=== PATIENT | female | born 1995 | race Caucasian/White ===

== ENCOUNTER 2018-12-24 06:51 | Emergency (ER) | payer BC ==
[2018-12-24] MEDS ORDERED: IPRATROPIUM-ALBUTEROL 3 ML NEB INHALATION STA (07:38)
[2018-12-24] MEDS ORDERED: ACETAMINOPHEN TAB 325 MG TAB PO STA (07:41)
--- NOTE | 2018-12-24 07:42 | ED ---
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 She states is getting worse not better. She states she has a nonproductive cough but has a bad taste in her mouth after coughing. She denies any earaches or sore throat other than from coughing she has had intermittent on and off rhinorrhea. She states that is clear. She thought she does have a cold but again is not getting better. No other modifying factors or complaints. MD Complaint: fever, cough, rhinorrhea, nasal congestion, other - Related Data Previous Rx's Medication Instructions Recorded Ibuprofen [Motrin] 600 mg PO Q6HR PRN #20 tab 12/24/18 Oseltamivir [Tamiflu] 75 mg PO Q12HR #10 cap 12/24/18 Allergies Allergy/AdvReac Type Severity Reaction Status Date / Time No Known Allergies Allergy Verified 12/24/18 07:37 Review of Systems ROS Statement: Those systems with pertinent positive or pertinent negative responses have been documented in the HPI. ROS Other: All systems not noted in ROS Statement are negative. Past Medical History Past Medical History: Pneumonia History of Any Multi-Drug Resistant Organisms: None Reported Past Surgical History: No Surgical Hx Reported Past Psychological History: No Psychological Hx Reported Smoking Status: Never smoker Past Alcohol Use History: Occasional Past Drug Use History: None Reported General Exam - General Exam Comments Initial Comments: This a well-developed well-nourished awake alert oriented 3 female Limitations: no limitations General appearance: alert, anxious Head exam: Present: atraumatic, normocephalic, normal inspection Eye exam: Present: normal appearance, PERRL, EOMI. Absent: scleral icterus, conjunctival injection, periorbital swelling ENT exam: Present: other (Boggy nasal mucosa with clear drainage noted mild hyperemia posterior pharynx with no exudates. Dull TMs with no evidence of any exudates/fluid no erythema.) Neck exam: Present: normal inspection, full ROM, other (No stridor JVD or bruits ). Absent: tenderness, meningismus, lymphadenopathy Respiratory exam: Present: decreased breath sounds Cardiovascular Exam: Present: normal rhythm, tachycardia, normal heart sounds. Absent: systolic murmur, diastolic murmur, rubs, gallop, clicks GI/Abdominal exam: Present: soft, normal bowel sounds. Absent: distended, tenderness, guarding, rebound, rigid Extremities exam: Present: normal inspection, full ROM, normal capillary refill. Absent: tenderness, pedal edema, joint swelling, calf tenderness Back exam: Present: normal inspection Neurological exam: Present: alert, oriented X3, CN II-XII intact Psychiatric exam: Present: normal affect, normal mood Skin exam: Present: warm, dry, intact, normal color. Absent: rash Course Vital Signs 12/24/18 12/24/18 12/24/18 07:07 07:22 07:49 Temperature 99.2 F Pulse Rate 120 H 88 Respiratory 18 16 Rate Blood Pressure 111/78 O2 Sat by Pulse 98 Oximetry 12/24/18 07:57 Temperature Pulse Rate 92 Respiratory Rate Blood Pressure O2 Sat by Pulse Oximetry Medical Decision Making - Medical Decision Making Patient did state that she got no relief or change in her ability to breathe with the nebulizer treatment. Reevaluation reveals some increased aeration. She does have influenza type A we did discuss the findings. She would like to try the Tamiflu. She will be given the rest the week off from work if she worsens a child [facility]. The presentation is consistent with influenza - Lab Data Lab Results 12/24/18 Range/Units 07:37 Influenza Type A RNA Detected H (Not Detectd) Influenza Type B (PCR) Not Detected (Not Detectd) - Radiology Data Radiology results: report reviewed (I did review the imaging and report no acute findings.), image reviewed Disposition Clinical Impression: Influenza A, Bronchitis, Viral syndrome Disposition: HOME SELF-CARE Condition: Good Instructions (If sedation given, give patient instructions): Influenza (ED), Upper Respiratory Infection (ED), Acute Bronchitis (ED), Viral Syndrome (ED) Prescriptions: Ibuprofen [Motrin] 600 mg PO Q6HR PRN #20 tab PRN Reason: Fever Oseltamivir [Tamiflu] 75 mg PO Q12HR #10 cap Is patient prescribed a controlled substance at d/c from ED?: No Referrals: None,Stated [Primary Care Provider] - 1-2 days
--- NOTE | 2018-12-24 08:16 | XR ---
EXAMINATION TYPE: XR chest 2V DATE OF EXAM: 12/24/2018 COMPARISON: None INDICATION: Cough congestion TECHNIQUE: Frontal and lateral views of the chest are obtained. FINDINGS: The heart size is normal. The pulmonary vasculature is normal. The lungs are clear. IMPRESSION: 1. No acute pulmonary process.
[2018-12-24] MEDS ORDERED: OSELTAMIVIR 75 MG CAP PO STA (08:28)
[2018-12-24 08:47] VITALS: BP 141/88; PULSE 120; RESP 22; TEMP 100.3
== END 2018-12-24 08:44 | disposition home or self-care (01) ==
LOC: EC 06:51
DX: J10.1 Influenza due to other identified influenza virus with other respiratory manifestations (principal); B34.9 Viral infection, unspecified; J40 Bronchitis, not specified as acute or chronic
CPT/HCPCS: 71046; 87502; 94640; 99284

== ENCOUNTER → 2019-01-09 | Outpatient (CLI) | payer BC | END | disposition home or self-care (01) | LOC: LABWHC1 15:41 | PROVIDERS: ATTEND Obstetrics & Gynecology | DX: N91.2 Amenorrhea, unspecified (principal) | CPT/HCPCS: 36415; 84702 ==

== ENCOUNTER 2021-07-15 16:59 | Emergency (ER) | payer BC, OTHER ==
[2021-07-15 17:04] VITALS: BP 139/88; PULSE 103; RESP 18; TEMP 98.8
[2021-07-15] MEDS ORDERED: KETOROLAC 15 MG/ML 1 ML VIAL IM STA (17:15)
--- NOTE | 2021-07-15 17:23 | ED ---
ENT HPI - General Chief complaint: ENT Stated complaint: ear pain Time Seen by Provider: 07/15/21 17:06 Source: patient, RN notes reviewed, old records reviewed Mode of arrival: ambulatory Limitations: no limitations - History of Present Illness Initial comments: 25-year-old female, alert and oriented 4, presents to the emergency room with left ear pain for 6 days. She was placed on amoxicillin on Saturday for an ear infection but she states that it is still painful and now feels it on the left side of her face. She denies any fevers, headaches, dizziness or nausea vomiting. She denies any drainage. She states that she is maxed out on Tylenol and ibuprofen but doesn't know what else to do for pain. MD complaint: ear pain -: days(s) (6) Location: L ear Severity scale (1-10): 8 Quality: aching, sharp Consistency: constant Improves with: none - Related Data Previous Rx's Medication Instructions Recorded Ibuprofen [Motrin] 600 mg PO Q6HR PRN #20 tab 12/24/18 Oseltamivir [Tamiflu] 75 mg PO Q12HR #10 cap 12/24/18 Azithromycin [Zithromax Z-pack (6 0 mg PO DIRECTED #6 tab 07/15/21 tabs)] predniSONE 50 mg PO DAILY #5 tab 07/15/21 Allergies Allergy/AdvReac Type Severity Reaction Status Date / Time No Known Allergies Allergy Verified 07/15/21 17:04 Review of Systems ROS Statement: Those systems with pertinent positive or pertinent negative responses have been documented in the HPI. ROS Other: All systems not noted in ROS Statement are negative. Past Medical History Past Medical History: Pneumonia History of Any Multi-Drug Resistant Organisms: None Reported Past Surgical History: No Surgical Hx Reported Past Psychological History: No Psychological Hx Reported Smoking Status: Never smoker Past Alcohol Use History: Occasional Past Drug Use History: None Reported General Exam Limitations: no limitations General appearance: alert, in no apparent distress Head exam: Present: atraumatic, normocephalic, normal inspection Eye exam: Present: normal appearance, PERRL, EOMI. Absent: scleral icterus, conjunctival injection, periorbital swelling ENT exam: Present: normal exam, normal oropharynx, mucous membranes moist, normal external ear exam, other (Left otitis media with effusion and air fluid levels). Absent: TM's normal bilaterally Neck exam: Present: normal inspection, full ROM. Absent: tenderness, meningismus, lymphadenopathy Respiratory exam: Present: normal lung sounds bilaterally. Absent: respiratory distress, wheezes, rales, rhonchi, stridor Cardiovascular Exam: Present: tachycardia Back exam: Present: full ROM. Absent: tenderness, CVA tenderness (R), CVA tenderness (L) Neurological exam: Present: alert, oriented X3, CN II-XII intact Psychiatric exam: Present: normal affect, normal mood Skin exam: Present: warm, dry, intact, normal color. Absent: rash, cyanosis, diaphoretic, erythema, petechiae, pallor, mottled Course Vital Signs 07/15/21 17:00 Temperature 98.8 F Pulse Rate 103 H Respiratory 18 Rate Blood Pressure 139/88 O2 Sat by Pulse 96 Oximetry Medical Decision Making - Medical Decision Making Patient's left tympanic membrane shows an effusion with erythema resembling bullous myringitis. She has no focal neurologic deficits. No hearing loss. She denies any headache or visual changes. She states she has not had any fevers . She is directed to stop taking the amoxicillin and take Zithromax as prescribed and prednisone for inflammation. She was given a referral to ENT. Case was discussed with Dr. Perkins. Disposition Clinical Impression: Otitis media Disposition: HOME SELF-CARE Condition: Good Instructions (If sedation given, give patient instructions): Ear Infection (ED) Additional Instructions: Stop taking the amoxicillin and take the Zithromax as prescribed. Take prednisone as prescribed and do not take Motrin or ibuprofen when taking steroids for the next 5 days. Continue Tylenol for pain. Follow-up with ear or nose and throat doctor next week. Return to the emergency room with any new or worsening symptoms including increased pain with fevers or headaches. Prescriptions: predniSONE 50 mg PO DAILY #5 tab Azithromycin [Zithromax Z-pack (6 tabs)] 0 mg PO DIRECTED #6 tab Is patient prescribed a controlled substance at d/c from ED?: No Referrals: Santo Nesbitt MD [Primary Care Provider] - 1-2 days Mike Singh MD [STAFF PHYSICIAN] - 1-2 days Time of Disposition: 17:34
[2021-07-15] MEDS ORDERED: ACET/COD 300 MG/30 MG STARTER PACK 6 TAB BTL PO STA (17:34)
== END 2021-07-15 17:43 | disposition home or self-care (01) ==
LOC: EC 16:59
DX: H66.92 Otitis media, unspecified, left ear (principal); Z79.1 Long term (current) use of non-steroidal anti-inflammatories (NSAID); Z79.899 Other long term (current) drug therapy
CPT/HCPCS: 99282; 96372; J1885

== ENCOUNTER 2021-07-16 03:43 | Emergency (ER) | payer OTHER ==
[2021-07-16 03:48] VITALS: TEMP 98.3
[2021-07-16] MEDS ORDERED: KETOROLAC 15 MG/ML 1 ML VIAL IM STA (04:01)
[2021-07-16] MEDS ORDERED: MORPHINE SULFATE 4 MG/ML SYRINGE IM STA (04:01)
--- NOTE | 2021-07-16 04:04 | ED ---
General Adult HPI - General Chief complaint: ENT Stated complaint: ENT Time Seen by Provider: 07/16/21 03:46 Source: patient Mode of arrival: ambulatory Limitations: no limitations - History of Present Illness Initial comments: 25 year-old female patient presents to the emergency department for evaluation of left ear pain. Patient was seen and evaluated yesterday afternoon for left ear pain. She was diagnosed with bullous myringitis and discharged with azithromycin and prednisone. She was given tylenol with codeine starter pack. She was previously given amoxicillin for otitis media on Saturday. States she has been taking the medications without relief. Denies any fever or chills. Denies nausea or vomiting. States she is unable to sleep due to the pain. Denies any headache. Denies neck or back pain. - Related Data Previous Rx's Medication Instructions Recorded Ibuprofen [Motrin] 600 mg PO Q6HR PRN #20 tab 12/24/18 Oseltamivir [Tamiflu] 75 mg PO Q12HR #10 cap 12/24/18 Azithromycin [Zithromax Z-pack (6 0 mg PO DIRECTED #6 tab 07/15/21 tabs)] predniSONE 50 mg PO DAILY #5 tab 07/15/21 HYDROcodone/APAP 5-325MG [[place] 5] 1 each PO Q6HR PRN #8 tab 07/16/21 Allergies Allergy/AdvReac Type Severity Reaction Status Date / Time No Known Allergies Allergy Verified 07/16/21 03:48 Review of Systems ROS Statement: Those systems with pertinent positive or pertinent negative responses have been documented in the HPI. ROS Other: All systems not noted in ROS Statement are negative. Past Medical History Past Medical History: Pneumonia History of Any Multi-Drug Resistant Organisms: None Reported Past Surgical History: No Surgical Hx Reported Past Psychological History: No Psychological Hx Reported Smoking Status: Never smoker Past Alcohol Use History: Occasional Past Drug Use History: None Reported General Exam Limitations: no limitations General appearance: alert, in no apparent distress, other (This is a well-developed, well-nourished adult female patient in mild distress related to pain. Vital signs upon presentation temperature 98.3F, pulse 97, respirations 20, blood pressure 157/95, pulse ox 95% on room air.) ENT exam: Present: normal exam, normal oropharynx, mucous membranes moist. Absent: TM's normal bilaterally (Left tympanic membrane is bulging and erythematous, some drainage in the ear.) Neck exam: Present: normal inspection. Absent: tenderness, meningismus, lymphadenopathy Respiratory exam: Present: normal lung sounds bilaterally. Absent: respiratory distress, wheezes, rales, rhonchi, stridor Cardiovascular Exam: Present: regular rate, normal rhythm, normal heart sounds. Absent: systolic murmur, diastolic murmur, rubs, gallop, clicks Neurological exam: Present: alert, oriented X3, CN II-XII intact Psychiatric exam: Present: normal affect, normal mood Skin exam: Present: warm, dry, intact, normal color. Absent: rash Course Vital Signs 07/16/21 07/16/21 03:44 04:37 Temperature 98.3 F 98.3 F Pulse Rate 97 98 Respiratory 20 18 Rate Blood Pressure 157/95 147/95 O2 Sat by Pulse 95 95 Oximetry Medical Decision Making - Medical Decision Making 25-year-old female patient presented to the emergency department today for evaluation of left ear pain. Physical examination did reveal left tympanic membrane bulging and erythema with drainage in the ear canal. Symptoms and findings are consistent with bullous pharyngitis. Patient did start azithromycin and prednisone yesterday. She will be given IM doses of Toradol and morphine while here. Given a 2 day course of Seneca. She is instructed to follow up with ENT in her primary care physician as soon as possible. Return parameters were discussed in detail. She verbalizes understanding and agrees with this plan. My attending is Dr. Katz. Disposition Clinical Impression: Left otitis media Disposition: HOME SELF-CARE Condition: Good Instructions (If sedation given, give patient instructions): Ear Infection (ED) Additional Instructions: Continue antibiotics and steroids as directed. Take all medications with food. Follow-up with her primary care physician and ENT specialist as planned. Return for any new, worsening, or concerning symptoms. Prescriptions: HYDROcodone/APAP 5-325MG [[place] 5] 1 each PO Q6HR PRN #8 tab PRN Reason: Pain Is patient prescribed a controlled substance at d/c from ED?: No Referrals: Santo Nesbitt MD [Primary Care Provider] - 1-2 days Time of Disposition: 04:03
[2021-07-16 04:49] VITALS: BP 147/95; PULSE 98; RESP 18
== END 2021-07-16 04:37 | disposition home or self-care (01) ==
LOC: EC 03:43
DX: H66.92 Otitis media, unspecified, left ear (principal)
CPT/HCPCS: 99282; 96372 ×2; J2270; J1885

== ENCOUNTER 2022-05-19 08:34 | Emergency (ER) | payer BC, OTHER ==
[2022-05-19 08:45] VITALS: BP 136/96; PULSE 101; RESP 18; TEMP 98.1
--- NOTE | 2022-05-19 09:17 | ED ---
Abdominal Pain HPI - General Chief Complaint: Abdominal Pain Stated Complaint: ABD Pain, Wants IUD out Time Seen by Provider: 05/19/22 08:47 Source: patient Mode of arrival: ambulatory Limitations: no limitations - History of Present Illness Initial Comments: Patient is a 26-year-old female presenting with chief complaint of "I want my IUD out". Patient had a cut her IUD placed by the health Department on Saturday. She states that insertion was very painful. She states that since then she has been having pelvic cramping and vaginal burning. She also states that "I just don't feel like myself". Patient is requesting that we remove the IUD today. She admits to some spotting. Denies dysuria, hematuria, urgency, frequency, other vaginal discharge, fever, chills, nausea, vomiting, flank pain. - Related Data Previous Rx's Medication Instructions Recorded Ibuprofen [Motrin] 600 mg PO Q6HR PRN #20 tab 12/24/18 Oseltamivir [Tamiflu] 75 mg PO Q12HR #10 cap 12/24/18 Azithromycin [Zithromax Z-pack (6 0 mg PO DIRECTED #6 tab 07/15/21 tabs)] predniSONE 50 mg PO DAILY #5 tab 07/15/21 HYDROcodone/APAP 5-325MG [[place] 5] 1 each PO Q6HR PRN #8 tab 07/16/21 Allergies Allergy/AdvReac Type Severity Reaction Status Date / Time No Known Allergies Allergy Verified 05/19/22 08:44 Review of Systems ROS Statement: Those systems with pertinent positive or pertinent negative responses have been documented in the HPI. ROS Other: All systems not noted in ROS Statement are negative. Past Medical History Past Medical History: Pneumonia History of Any Multi-Drug Resistant Organisms: None Reported Past Surgical History: No Surgical Hx Reported Past Psychological History: No Psychological Hx Reported Smoking Status: Never smoker Past Alcohol Use History: Occasional Past Drug Use History: None Reported General Exam Limitations: no limitations General appearance: alert, in no apparent distress Head exam: Present: atraumatic, normocephalic, normal inspection Eye exam: Present: normal appearance, EOMI. Absent: scleral icterus, periorbital swelling Neck exam: Present: normal inspection Respiratory exam: Present: normal lung sounds bilaterally. Absent: respiratory distress, wheezes, rales, rhonchi, stridor Cardiovascular Exam: Present: regular rate, normal rhythm, normal heart sounds. Absent: systolic murmur, diastolic murmur, rubs, gallop, clicks GI/Abdominal exam: Present: soft. Absent: distended, tenderness, guarding, rebound, rigid External exam: Present: normal external exam Speculum exam: Present: normal speculum exam Neurological exam: Present: alert, oriented X3, CN II-XII intact Psychiatric exam: Present: normal affect, normal mood Skin exam: Present: warm, dry, intact, normal color. Absent: rash Course Vital Signs 05/19/22 08:38 Temperature 98.1 F Pulse Rate 101 H Respiratory 18 Rate Blood Pressure 136/96 O2 Sat by Pulse 98 Oximetry Medical Decision Making - Medical Decision Making Patient is a 26-year-old female presenting for removal of IUD. Patient had a copper IUD inserted at the health department on Saturday. Since then she has been experiencing cramping and spotting, as well as some emotional distress. She is requesting that it be removed today. UA shows no sign of UTI and hCG is negative. On examination cervix appears normal, no purulent vaginal discharge. Cultures and STI testing are taken. IUD is successfully removed. Patient is educated to expect some cramping and spotting. Patient is informed that now she is on no form of control and is able to get . Follow-up with [facility] this week. Report back to ER with any new or worsening symptoms. Discussed return parameters answered all questions. Patient conveyed verbal understanding and agreed to the plan. I discussed this case with my attending Dr. Stevenson. - Lab Data Lab Results 05/19/22 05/19/22 Range/Units 09:10 09:15 Urine Color Yellow Urine Appearance Clear (Clear) Urine pH 5.5 (5.0-8.0) Ur Specific Badger 1.026 (1.001-1.035) Urine Protein Negative (Negative) Urine Glucose (UA) Negative (Negative) Urine Ketones Negative (Negative) Urine Blood Small H (Negative) Urine Nitrite Negative (Negative) Urine Bilirubin Negative (Negative) Urine Urobilinogen <2.0 (<2.0) mg/dL Ur Leukocyte Esterase Negative (Negative) Urine RBC 5 (0-5) /hpf Urine WBC 5 (0-5) /hpf Ur Squamous Epith Cells 4 (0-4) /hpf Urine Mucus Rare H (None) /hpf Urine HCG, Qual Not Detected (Not Detectd) Disposition Clinical Impression: Encounter for IUD removal Disposition: HOME SELF-CARE Condition: Good Instructions (If sedation given, give patient instructions): Pelvic Pain in Women (ED) Additional Instructions: Follow-up with [facility] SPECIALIST this week. You are now on no form of control, meaning that you are able to get . Report back to ER with any new or worsening symptoms. Take Motrin and Tylenol as needed for pain control. Some vaginal bleeding is to be expected today. Your Care Instructions The intrauterine device (IUD) is a method of control. It is a small, plastic, T-shaped device that contains copper or hormones. It is placed in your uterus. You may have had your IUD removed because you want to become . Or maybe it caused pain, bleeding, or an infection. You may have chosen another method of control. If you don't want to get , make sure to use another form of control now that your IUD is not in place. Talk to your doctor about other forms of control. Follow-up care is a bustamante part of your treatment and safety. Be sure to make and go to all appointments, and call your doctor or nurse call line if you are having problems. It's also a good idea to know your test results and keep a list of the medicines you take. How can you care for yourself at home? IUD removal does not usually cause any pain or problems if the IUD is removed because you want to become or because of bleeding. Once the IUD is taken out, you can become . If you want to become , you can start trying to have a baby as soon as you like. If your doctor prescribed antibiotics because of an infection, take them as directed. Do not stop taking them just because you feel better. You need to take the full course of antibiotics. When should you call for help? Call 911 anytime you think you may need emergency care. For example, call if: You passed out (lost consciousness). Call your doctor or nurse call line now or seek immediate medical care if: You have severe vaginal bleeding. This means that you are soaking through your usual pads or tampons every hour for 2 or more hours and passing clots of blood. You have a fever. You feel sick to your stomach, or you vomit. You have new or worse pelvic pain. You have new or worse belly pain. You are dizzy or light-headed, or you feel like you may faint. Watch closely for changes in your health, and be sure to contact your doctor or nurse call line if you have any problems. Is patient prescribed a controlled substance at d/c from ED?: No Referrals: Cata Gilman DO [Doctor of Osteopathic Medicine] - 1-2 days Time of Disposition: 09:49
[2022-05-19 09:20] LABS: Appearance,Urine Clear (Clear); Bilirubin,Urine Negative (Negative); Blood,Urine Small (Negative); Color,Urine Yellow; Glucose,Urine (UA) Negative (Negative); Ketones,Urine Negative (Negative); Leukocyte Esterase,Urine Negative (Negative); Mucus,Urine Rare /hpf; Nitrite,Urine Negative (Negative); PH, Urine 5.5 (5.0-8.0); Protein,Urine Negative (Negative); RBC,Urine 5 /hpf (0-5); Specific Gravity,Urine 1.026 (1.001-1.035); Squamous Epithelial Cell,Urine 4 /hpf (0-4); Urobilinogen,Urine <2.0 mg/dL (<2.0); WBC,Urine 5 /hpf (0-5)
== END 2022-05-19 09:59 | disposition home or self-care (01) ==
LOC: EC 08:34
DX: Z30.432 Encounter for removal of intrauterine contraceptive device (principal)
CPT/HCPCS: 81001; 81025; 87070; 87491; 87591; 87808; 99284

== ENCOUNTER → 2023-10-03 | Outpatient (CLI) | payer OTHER ==
[2023-10-04 02:57] LABS: Basophils # (A) 0.04 X 10*3/uL (0.00-0.10); Basophils % (A) 0.5 %; Eosinophils # (A) 0.12 X 10*3/uL (0.04-0.35); Eosinophils % (A) 1.4 %; HCT 42.8 % (37.2-46.3); Lymphocytes # (A) 2.33 X 10*3/uL (0.90-5.00); MCH 26.3 pg (27.0-32.0); MCHC 30.4 g/dL (32.0-37.0); MCV 86.6 FL (80.0-97.0); Mean Platelet Volume 10.7 FL (9.5-12.2); Monocytes # (A) 0.64 X 10*3/uL (0.20-1.00); Monocytes % (A) 7.4 %; NRBC Per 100 WBC 0 X 10*3/uL (0.00-0.01); Neutrophils # (A) 5.48 X 10*3/uL (1.80-7.70); Neutrophils % (A) 63.5 %; Platelet Count 397 X 10*3/uL (140-440); RBC 4.94 X 10*6/uL (4.10-5.20); RDW 13.9 % (11.5-14.5); WBC 8.63 X 10*3/uL (4.50-10.00)
== END | disposition home or self-care (01) ==
LOC: LABWHC1 13:57
PROVIDERS: ATTEND Obstetrics & Gynecology
DX: Z01.812 Encounter for preprocedural laboratory examination (principal)
CPT/HCPCS: 36415; 85025

== ENCOUNTER 2023-10-10 08:43 | Day surgery (SDC) | payer OTHER ==
--- NOTE | 2023-10-10 00:04 | P.HPOB ---
History of Present Illness H&P Date: 10/09/23 Chief Complaint: family planning 28 year old presents for laparoscopic tubal ligation. Review of Systems All systems: negative Constitutional: Denies chills, Denies fever Eyes: denies blurred vision, denies pain Ears, nose, mouth and throat: Denies headache, Denies sore throat Cardiovascular: Denies chest pain, Denies shortness of breath Respiratory: Denies cough Gastrointestinal: Denies abdominal pain, Denies diarrhea, Denies nausea, Denies vomiting Genitourinary: Denies dysuria, Denies hematuria Musculoskeletal: Denies myalgias Integumentary: Denies pruritus, Denies rash Neurological: Denies numbness, Denies weakness Psychiatric: Denies anxiety, Denies depression Endocrine: Denies fatigue, Denies weight change Past Medical History Past Medical History: Pneumonia History of Any Multi-Drug Resistant Organisms: None Reported Past Surgical History: No Surgical Hx Reported Additional Past Surgical History / Comment(s): cyst removed from chest Past Anesthesia/Blood Transfusion Reactions: No Reported Reaction Smoking Status: Never smoker Medications and Allergies Home Medications Medication Instructions Recorded Confirmed Type No Known Home Medications 10/07/23 10/07/23 History Allergies Allergy/AdvReac Type Severity Reaction Status Date / Time acrylic nails AdvReac Swelling Uncoded 10/07/23 13:17 Exam Osteopathic Statement: *. No significant issues noted on an osteopathic structural exam other than those noted in the History and Physical/Consult. Heart: RRR Lungs: CTAB Abdomen: soft, nontender Extremeties: neg homans Assessment and Plan (1) Family planning Status: Acute Code(s): Z30.09 - ENCOUNTER FOR OTH GENERAL CNSL AND ADVICE ON CONTRACEPTION SNOMED Code(s): 543989476 Plan: 1. laparoscopic tubal ligation
[~2023-10-10 08:43] MED LIST: Pre Op ABX Message 1 EACH MISC MISCELLANE ONE
[2023-10-10] MEDS ORDERED: ONDANSETRON 4 MG/2 ML VIAL IVP ONE (09:01)
[2023-10-10] MEDS ORDERED: LACTATED RINGERS 1,000 ML IV SCH (09:01)
[2023-10-10] MEDS ORDERED: HYDROmorphone 0.5 MG/0.5 ML SYRINGE IVP PRN (09:01)
[2023-10-10] MEDS ORDERED: DEXAMETHASONE SOD PHOSPHATE 4 MG/ML 1 ML VIAL IV ONE (09:01)
[2023-10-10] MEDS ORDERED: LIDOCAINE 1% (10MG/ML) FOR IV START INTRADERMA ONE (09:20)
[2023-10-10] MEDS ORDERED: SUCCINYLCHOLINE CHLORIDE 200 MG/10 ML VIAL IV ONE (10:15)
[2023-10-10] MEDS ORDERED: PROPOFOL 10 MG/ML 20 ML VIAL IV ONE (10:15)
[2023-10-10] MEDS ORDERED: ROCURONIUM 10 MG/ML (5 ML VIAL) IV ONE (10:15)
[2023-10-10] MEDS ORDERED: NEOSTIGMINE 1 MG/ML 10 ML VIAL ONE (10:15)
[2023-10-10] MEDS ORDERED: GLYCOPYRROLATE 0.2 MG/ML 2 ML VIAL ONE (10:15)
[2023-10-10] MEDS ORDERED: fentaNYL (PF) 50 MCG/ML 2 ML AMP ONE (10:15)
[2023-10-10] MEDS ORDERED: KETOROLAC 15 MG/ML 1 ML VIAL ONE (10:15)
[2023-10-10] MEDS ORDERED: LIDOCAINE 1% INJ 10MG/ML (20 ML MDV) ONE (10:15)
[2023-10-10] MEDS ORDERED: BUPIVACAINE (PF) 0.25% 30 ML VIAL SQ ONE (10:36)
--- NOTE | 2023-10-10 11:25 | P.OP ---
Date of Procedure: 10/10/23 Preoperative Diagnosis: 1. family planning Postoperative Diagnosis: 1. family planning Procedure(s) Performed: laparoscopic tubal ligation Anesthesia: NAT Surgeon: Cata Gilman Estimated Blood Loss (ml): 5 IV fluids (ml): 200 Urine output (ml): 10 Pathology: none sent Condition: stable Disposition: PACU Operative Findings: Normal uterus, tubes, ovaries. Description of Procedure: Patient was taken to the operating room where general anesthesia was obtained without difficulty. She was prepped and draped in normal sterile fashion in the dorsal lithotomy position, legs placed in the Louie stirrups. Bladder drained of all urine. [employer] speculum placed in the vagina and the anterior lip the cervix was grasped with single-tooth tenaculum. The uterus is sounded to 7 cm and the kroner manipulator was placed. Attention was then turned to the abdomen and gloves were changed. A 10 mm infraumbilical incision was made the scalpel and 10 mm optical trocar was placed under direct visualization. A 5 mm suprapubic Incision was made and a 5 mm optical trocar was placed under direct visualization. Survey of the pelvis revealed normal uterus tubes and ovaries. The left fallopian tube was grasped with a Kleppinger and fulgurated 2-3 cm on this side in the ampullar portion. The right fallopian tube was grasped with a Kleppinger and fulgurated 2-3 cm in the ampullar portion. All instruments were then removed from the abdomen and vagina. The 10 mm infraumbilical incision was closed with 0 Vicryl and the fascial layer and then 4-0 Vicryl in a subcuticular fashion. The 5 mm incision was closed with 4-0 Vicryl in a subcuticular fashion. Patient tolerated procedure well, sponge and instrument counts correct 2 and she was taken to recovery room in stable condition.
[2023-10-10 11:27] VITALS: RESP 14; TEMP 97
[2023-10-10 12:15] VITALS: BP 111/77; PULSE 93
== END 2023-10-10 12:39 | disposition home or self-care (01) ==
LOC: OR 08:43
PROVIDERS: ATTEND Obstetrics & Gynecology
DX: Z30.2 Encounter for sterilization (principal); Z79.899 Other long term (current) drug therapy
CPT/HCPCS: 58670; 81025; J0330; J1100; J2710; J2405; J2001; J3010; J1885; J2704; J0665